=== PATIENT | female | born 2000 | race Caucasian/White ===

== ENCOUNTER 2023-05-09 15:13 | Outpatient (REF) | payer MEDICAID, SELFPAY ==
--- NOTE | ~2023-05-09 | XR_ITS ---
EXAMINATION: 1. RADIOGRAPHS RIGHT FOOT 2. RADIOGRAPHS LEFT FOOT CLINICAL INFORMATION: Bilateral heel pain for one week COMPARISON: None TECHNIQUE: 3 views of each foot were obtained. FINDINGS: Right foot: Bones of the midfoot are well aligned. No tarsal, metatarsal or phalangeal fracture. No appreciable degenerative changes. No localized soft tissue swelling. No radiopaque foreign body. No gross ankle joint effusion. Left foot: Bones of the midfoot are well aligned. No tarsal, metatarsal or phalangeal fracture. No appreciable degenerative changes. No localized soft tissue swelling. No radiopaque foreign body. No gross ankle joint effusion. XR/XR foot RT min 3V IMPRESSION: Unremarkable radiographs of the bilateral feet.
--- NOTE | ~2023-05-09 | XR_ITS ---
EXAMINATION: 1. RADIOGRAPHS RIGHT FOOT 2. RADIOGRAPHS LEFT FOOT CLINICAL INFORMATION: Bilateral heel pain for one week COMPARISON: None TECHNIQUE: 3 views of each foot were obtained. FINDINGS: Right foot: Bones of the midfoot are well aligned. No tarsal, metatarsal or phalangeal fracture. No appreciable degenerative changes. No localized soft tissue swelling. No radiopaque foreign body. No gross ankle joint effusion. Left foot: Bones of the midfoot are well aligned. No tarsal, metatarsal or phalangeal fracture. No appreciable degenerative changes. No localized soft tissue swelling. No radiopaque foreign body. No gross ankle joint effusion. XR/XR foot LT min 3V IMPRESSION: Unremarkable radiographs of the bilateral feet.
== END 2023-05-09 15:14 | disposition home or self-care (01) ==
LOC: HO.HHCX 15:13
PROVIDERS: Visit Provider Registered Nurse
DX: M79.671 Pain in right foot (principal); M79.672 Pain in left foot
CPT/HCPCS: 73630

== ENCOUNTER 2023-09-05 15:36 | Outpatient (REF) | payer MEDICAID, SELFPAY ==
[2023-09-05 18:20] LABS: Alanine Aminotransferase 8 U/L (0-31); Albumin Level 4.4 g/dL (3.5-5.0); Alkaline Phosphatase 55 U/L (39-117); Anion Gap 8 (12-20); Aspartate Amino Transferase 12 U/L (5-31); Bilirubin Total 0.5 mg/dL (0.0-1.0); Blood Urea Nitrogen 11 mg/dL (9-16); Calcium 9.3 mg/dL (8.4-10.2); Carbon Dioxide 25 mmol/L (22-29); Chloride 109 mmol/L (96-108); Cholesterol 149 mg/dL (<200); Estimated Glomerular Filt Rate > 60; Glucose Random 81 mg/dL (60-115); HDL Cholesterol 50 mg/dL (>40); LDL Cholesterol Calculated 89 mg/dL (<100); Potassium 3.9 mmol/L (3.3-5.1); Sodium 138 mmol/L (135-145); Total Protein 7.5 g/dL (6.5-8.0); Triglycerides 52 mg/dL (<150)
[2023-09-05 18:36] LABS: TSH reflex Free T4 1.35 uIU/mL (0.32-4.0)
[2023-09-06 04:45] LABS: CT PCR NOT DETECTED (Not Detect.); NG PCR NOT DETECTED (Not Detect.)
[2023-09-07 08:44] LABS: RPR Rapid Plasma Reagin NON-REACTIVE (NON-REACTIVE)
[2023-09-07 13:28] LABS: HIV RNA PCR Qn Copies NOT DETECTED copies/mL (NOT DETECTED); HIV RNA PCR Qn Log Copies NOT DETECTED (NOT DETECTED)
== END 2023-09-05 15:37 | disposition home or self-care (01) ==
LOC: HO.HHCL 15:36
PROVIDERS: Visit Provider Nurse Practitioner Family
DX: Z11.4 Encounter for screening for human immunodeficiency virus [HIV] (principal); Z11.3 Encounter for screening for infections with a predominantly sexual mode of transmission
CPT/HCPCS: 0353U; 80053; 80061; 84443; 86592; 87536

== ENCOUNTER 2023-11-28 15:01 | Outpatient (REF) | payer MEDICAID, SELFPAY ==
[2023-11-28 16:08] LABS: MANUAL DIFF FLAG NO
[2023-11-28 16:21] LABS: Basophils Absolute Auto 0.1 X10*3/uL (0.0-0.2); Basophils Percent Auto 0.5 % (0-2); Eosinophils Absolute Auto 0.3 X10*3/uL (0.0-0.4); Eosinophils Percent Auto 3.5 % (0-4); Hematocrit 40.8 % (37.0-47.0); Imm Gran Abs Auto 0.03 X10*3/uL (0.00-0.03); Imm Gran Pct Auto 0.3 % (0.0-0.4); Lymphocytes Absolute Auto 1.7 X10*3/uL (1.2-4.9); Lymphocytes Percent Auto 18.1 % (20-40); Mean Corpuscular HGB Conc 34.3 g/dl (31.0-35.0); Mean Corpuscular Volume 93.2 fL (80.0-98.0); Mean Platelet Volume 10.4 fL (9.4-12.3); Monocytes Absolute Auto 0.9 X10*3/uL (0.1-1.2); Monocytes Percent Auto 9.3 % (2-11); Neutrophils Absolute Auto 6.4 x10*3/uL (2.0-8.3); Neutrophils Percent Auto 68.3 % (45-73); Platelet Count 262 X10*3/uL (160-400); Red Blood Count 4.38 X10*6/uL (4.20-5.50); Red Cell Distribution Width 11.9 % (11.0-16.0); White Blood Count 9.4 X10*3/uL (4.8-10.8)
[2023-11-28 17:26] LABS: Estimated Average Glucose 103 mg/dL; Hemoglobin A1c % 5.2 % (<6.0)
[2023-11-28 17:42] LABS: Anion Gap 12 (12-20); C Reactive Protein 0.23 mg/dL (< or = 0.50); Carbon Dioxide 24 mmol/L (22-29); Chloride 109 mmol/L (96-108); Potassium 3.7 mmol/L (3.3-5.1); Sodium 141 mmol/L (135-145)
[2023-11-28 17:46] LABS: Erythrocyte Sedimentation Rate 7 MM/HR (0-20)
== END 2023-11-28 15:02 | disposition home or self-care (01) ==
LOC: HO.HHCL 15:01
PROVIDERS: Visit Provider Nurse Practitioner Family
DX: R63.4 Abnormal weight loss (principal)
CPT/HCPCS: 36415; 80051; 83036; 85025; 85652; 86140

== ENCOUNTER 2023-11-29 17:05 | Outpatient (REF) | payer MEDICAID, SELFPAY | END 2023-11-29 17:06 | disposition home or self-care (01) | LOC: HO.HHCLNP 17:05 | PROVIDERS: Visit Provider Nurse Practitioner Family | DX: Z13.89 Encounter for screening for other disorder (principal) ==

== ENCOUNTER 2024-08-04 16:47 | Outpatient (REF) | payer MEDICAID, SELFPAY ==
[2024-08-05 14:02] LABS: CT PCR NOT DETECTED (Not Detect.); NG PCR NOT DETECTED (Not Detect.)
== END 2024-08-04 16:48 | disposition home or self-care (01) ==
LOC: HO.HHCLNP 16:47
PROVIDERS: Visit Provider Advanced Practice Midwife
DX: Z11.3 Encounter for screening for infections with a predominantly sexual mode of transmission (principal)
CPT/HCPCS: 87491; 87591

== ENCOUNTER 2025-05-18 18:04 | Outpatient (REF) | payer MEDICAID, SELFPAY ==
[2025-05-19 04:50] LABS: Bacterial Vaginosis PCR POSITIVE (Negative); Candida Group PCR NOT DETECTED (Not Detect); Candida glab krusei PCR NOT DETECTED (Not Detect); Trichomonas vaginalis PCR NOT DETECTED (Not Detect)
[2025-05-19 05:21] LABS: CT PCR NOT DETECTED (Not Detect.); NG PCR NOT DETECTED (Not Detect.)
== END 2025-05-18 18:05 | disposition home or self-care (01) ==
LOC: HO.LNP 18:04
PROVIDERS: Visit Provider Registered Nurse
DX: N89.8 Other specified noninflammatory disorders of vagina (principal); Z20.2 Contact with and (suspected) exposure to infections with a predominantly sexual mode of transmission
CPT/HCPCS: 81515; 87491; 87591